=== PATIENT | male | born 1965 | race Caucasian/White ===

== ENCOUNTER 2025-03-25 13:37 | Emergency (ER) | payer BC ==
[2025-03-25] MEDS ORDERED: Sodium Chloride 0.9% 10 ML Syringe FLUSH PRN (13:51)
[2025-03-25] MEDS: Ketorolac 15 MG/ML SDV IVPUSH ONE (14:12)
[2025-03-25] MEDS: HYDROmorphone 0.5 MG/0.5 ML Syringe IVPUSH ONE (14:40)
[2025-03-25] MEDS: Cyclobenzaprine 10 MG Tab PO ONE (15:20)
[2025-03-25] MEDS: Acetaminophen/HYDROcodone 325-5 MG Tab PO ONE (15:22)
== END 2025-03-25 16:04 | disposition home or self-care (01) ==
LOC: JP.ED 13:37
DX: S42.022A Displaced fracture of shaft of left clavicle, initial encounter for closed fracture (principal); S52.602A Unspecified fracture of lower end of left ulna, initial encounter for closed fracture; I10 Essential (primary) hypertension; Z88.2 Allergy status to sulfonamides; Z79.899 Other long term (current) drug therapy; W22.8XXA Striking against or struck by other objects, initial encounter
CPT/HCPCS: 29125; 73000; 73030; 73090; 73630; 96374; 96375; 99283; A9270; J1885